=== PATIENT | female | born 1985 | race Caucasian/White ===

== ENCOUNTER 2016-05-05 12:31 | Inpatient (IN) | payer BC ==
[~2016-05-05] VITALS: Ht 160 cm; Wt 70.4 kg
[2016-05-05] VITALS (13 sets, daily range): BP systolic 105–127; BP diastolic 57–101
[~2016-05-05 12:31] MED LIST: Motrin PO
[2016-05-05 13:52] LABS: EOSINOPHIL (%) 0.6 % (0-5); EOSINOPHIL COUNT 0.1 K/uL (0-0.3); HEMATOCRIT 36.4 % (36.0-46.0); IMMATURE GRANULOCYTE (%) 0.5 % (0.0-0.7); IMMATURE GRANULOCYTE COUNT 0.1 K/uL; LYMPHOCYTE COUNT 1.9 K/uL (1.0-2.8); MCHC 33.5 G/DL (30.0-36.0); MCV 89.4 FL (83-99); MEAN PLAT.VOLUME 9.9 uM^3 (9.5-12.4); MONOCYTE (%) 5.7 % (3-12); MONOCYTE COUNT 0.5 K/uL (0-0.8); NEUTROPHIL (%) 72.7 % (45-76); NEUTROPHIL COUNT 6.9 K/uL (1.8-6.4); PLATELET COUNT 297 K/uL (156-360); RBC DIS.WIDTH-CV 14.4 % (11.8-14.6); RBC DIS.WIDTH-SD 46.8 % (39-53); RED BLOOD COUNT 4.07 M/uL (3.80-5.20); WHITE BLOOD COUNT 9.5 K/uL (4.1-10.2)
[2016-05-05] MEDS ORDERED: PRENATAL TABLE1 EACH PO (15:06)
[2016-05-05] MEDS ORDERED: VALACYCLOVIR500 MG PO (17:14)
[2016-05-06] VITALS (16 sets, daily range): BP systolic 88–122; BP diastolic 47–71
[2016-05-07 05:12] LABS: HEMATOCRIT 32.6 % (36.0-46.0); MCH 29.7 PG (29.0-34.0); MCHC 32.5 G/DL (30.0-36.0); MCV 91.3 FL (83-99); MEAN PLAT.VOLUME 9.8 uM^3 (9.5-12.4); PLATELET COUNT 273 K/uL (156-360); RBC DIS.WIDTH-CV 14.6 % (11.8-14.6); RBC DIS.WIDTH-SD 48.8 % (39-53); RED BLOOD COUNT 3.57 M/uL (3.80-5.20); WHITE BLOOD COUNT 11.8 K/uL (4.1-10.2)
[2016-05-07 05:24] LABS: EOSINOPHIL (%) 2.1 % (0-5); EOSINOPHIL COUNT 0.3 K/uL (0-0.3); IMMATURE GRANULOCYTE (%) 0.3 % (0.0-0.7); LYMPHOCYTE COUNT 3.9 K/uL (1.0-2.8); MONOCYTE (%) 6.8 % (3-12); MONOCYTE COUNT 0.8 K/uL (0-0.8); NEUTROPHIL (%) 57.9 % (45-76); NEUTROPHIL COUNT 6.8 K/uL (1.8-6.4)
[2016-05-07 07:25] VITALS: BP 118/57
== END 2016-05-07 15:09 | disposition home or self-care (01) | DRG 775 ==
LOC: LDRP-OP 12:31 → 2WEST 12:32 → LDRP-OP 05-30 15:18
PROVIDERS: Advanced Practice Midwife
PROC: 3E033VJ Introduction of Other Hormone into Peripheral Vein, Percutaneous Approach (ICD-10-PCS; principal; 2016-05-06)
PROC: 3E0R3CZ (ICD-10-PCS; principal; 2016-05-06)
PROC: 00HU33Z Insertion of Infusion Device into Spinal Canal, Percutaneous Approach (ICD-10-PCS; principal; 2016-05-06)
PROC: 10E0XZZ Delivery of Products of Conception, External Approach (ICD-10-PCS; principal; 2016-05-06)
PROC: 0U7C7DZ Dilation of Cervix with Intraluminal Device, Via Natural or Artificial Opening (ICD-10-PCS; principal; 2016-05-06)
PROC: 0KQM0ZZ Repair Perineum Muscle, Open Approach (ICD-10-PCS; principal; 2016-05-06)
DX: O41.03X0 Oligohydramnios, third trimester, not applicable or unspecified (principal); O70.1 Second degree perineal laceration during delivery; O48.0 Post-term pregnancy; Z37.0 Single live birth; Z3A.41 41 weeks gestation of pregnancy
CPT/HCPCS: 85025; C1726; C1755; G0378; J3010; J7120

== ENCOUNTER 2017-12-04 23:28 | Emergency (ER) | payer BC ==
[~2017-12-04] VITALS: Ht 157.5 cm; Wt 56.3 kg
[~2017-12-04 23:28] MED LIST changes: +PRENATAL TABLE1 EACH PO; +VALACYCLOVIR500 MG PO
[2017-12-05] MEDS ORDERED: ZITHROMAX Z-PA250 MG PO (00:52)
[2017-12-05] MEDS ORDERED: PERCOCET 5/31 TABLET PO (00:52)
[2017-12-05 01:22] VITALS: BP 136/96
== END 2017-12-05 01:22 | disposition home or self-care (01) ==
LOC: EME 23:28
DX: H73.011 Bullous myringitis, right ear (principal); Z88.2 Allergy status to sulfonamides; Z88.1 Allergy status to other antibiotic agents
CPT/HCPCS: 99281; 99284